=== PATIENT | female | born 1985 | race African-American/Black ===

== ENCOUNTER 2018-11-20 02:47 | Emergency (ER) | payer MEDICAID ==
[~2018-11-20] VITALS: Ht 170.2 cm; Wt 73.0 kg
[2018-11-20] MEDS ORDERED: TETANUS, DIPHTHERIA, PERTUSSIS VAC/PF 0.5ML (>7YR OLD) IM ONE (06:15)
[2018-11-20] MEDS ORDERED: BACITRACIN 15GM TUBE TOP ONE (06:15)
[2018-11-20] MEDS ORDERED: HYDROCODONE/ACETAMINOPHEN 5/325MG TABLET PO ONE (06:15)
[2018-11-20 09:30] VITALS: BP 110/65
== END 2018-11-20 10:45 | disposition home or self-care (01) ==
LOC: ER 02:47
DX: S00.83XA Contusion of other part of head, initial encounter (principal); S20.419A Abrasion of unspecified back wall of thorax, initial encounter; M32.9 Systemic lupus erythematosus, unspecified; Y04.0XXA Assault by unarmed brawl or fight, initial encounter; Y07.03 Male partner, perpetrator of maltreatment and neglect; Y93.89 Activity, other specified; Y92.018 Other place in single-family (private) house as the place of occurrence of the external cause
CPT/HCPCS: 90471; 90715; 99283